=== PATIENT | female | born 1945 | race Caucasian/White ===

== ENCOUNTER 2019-05-26 20:18 | Emergency (ER) | payer MEDICARE, OTHER ==
[~2019-05-26] VITALS: Ht 154.9 cm; Wt 113.6 kg
[~2019-05-26 20:18] MED LIST: ALPR0.25 PO; BUPR300T3 PO; DULO30CA2 PO; EXEN10PE3 SQ; FLUT16SP2 NS; HYDR-2680 PO; LEVO88TA4 PO; LISI10TA2 PO; METF10007 PO; OMEP20CA16 PO; PRAV20TA2 PO; PREG100C PO; SUCR1TAB35 PO; SUMA25TA3 PO; TRAM50TA PO; ZOLP10TA PO
[2019-05-26] MEDS ORDERED: OXYMETAZOLINE 0.05% NASAL SPRAY 15ML BOTTLE. NS ONE ×2 (20:30→20:45)
[2019-05-26] MEDS ORDERED: SILVER NITRATE STICK TP ONE ×2 (20:32→20:45)
[2019-05-26 21:01] LABS: BASO # 0.1 x10^3/uL (0.0-0.2); BASO % 1 % (0-3); EOS # 0.3 x10^3/uL (0.0-0.7); EOS % 3 % (0-3); HEMATOCRIT 42.2 % (36.0-47.0); HEMOGLOBIN 13.8 g/dL (12.0-15.5); LYMPH # 2.4 x10^3/uL (1.0-4.8); LYMPH % 24 % (24-48); MEAN CORPUSCULAR HEMOGLOBIN 31 pg (25-35); MEAN CORPUSCULAR HGB CONC 33 g/dL (31-37); MEAN CORPUSCULAR VOLUME 96 fL (79-100); MONO # 0.7 x10^3/uL (0.0-1.1); MONO % 7 % (0-9); NEUT # 6.7 x10^3uL (1.8-7.7); NEUT % 66 % (31-73); PLATELET COUNT 158 x10^3/uL (140-400); RED BLOOD COUNT 4.41 x10^6/uL (3.50-5.40); RED CELL DISTRIBUTION WIDTH 13.3 % (11.5-14.5); WHITE BLOOD COUNT 10.1 x10^3/uL (4.0-11.0)
--- NOTE | 2019-05-26 21:43 | PHYS DOC ---
Past History Past Medical History: Asthma, COPD, Depression, Diabetes, GERD, High Cholesterol, Hypertension, Hypotension, Migraines Past Surgical History: Cholecystectomy Smoking: Non-smoker Alcohol Use: None Drug Use: None Adult General Chief Complaint Chief Complaint: NOSEBLEED HPI HPI 73-year-old female presents via EMS with report of nosebleed from left nostril which is been intermittent over the last 2 days. Denies dizziness or l ightheadedness. Reports was sent to ER for evaluation due to continued bleeding. Denies use of blood thinners. Denies trauma. Denies fever or chills. Review of Systems Review of Systems Constitutional: Denies fever or chills Eyes: Denies redness or eye pain HENT: Denies nasal congestion or sore throat; reports left naris epistaxis Respiratory: Denies cough or shortness of breath Cardiovascular: Denies chest pain or palpitations GI: Denies abdominal pain, nausea, or vomiting : Denies dysuria or hematuria Musculoskeletal: Denies back pain or joint pain Integument: Denies rash or skin lesions Neurologic: Denies headache, focal weakness, dizziness or sensory changes Complete systems were reviewed and found to be within normal limits, except as documented in this note.. Current Medications Current Medications Current Medications Medications (Trade) Dose Ordered Sig/Priya Start Time Stop Time Status Last Admin Dose Admin Oxymetazoline HCl (Afrin) 2 spray 1X ONCE 05/26/19 20:45 05/26/19 21:07 DC Silver Nitrate/ Potassium Nitrate 1 each 1X ONCE 05/26/19 20:45 05/26/19 21:06 DC 05/26/19 20:48 1 EACH Allergies Allergies Allergies Coded Allergies Type Severity Reaction Last Updated Verified codeine Allergy Mild 11/16/13 Yes Physical Exam Physical Exam Constitutional: Well developed, well nourished, no acute distress, non-toxic appearance HENT: Normocephalic, atraumatic, oropharynx moist, mild active bleeding anteriorly from nasal septum on left Eyes: Conjunctiva normal, no discharge Neck: Normal range of motion, no tenderness, supple Cardiovascular: Heart rate normal, regular rhythm Lungs & Thorax: Bilateral breath sounds clear to auscultation, no wheezing Skin: Warm, dry, no erythema, no rash Extremities: No tenderness, ROM intact, no edema Neurologic: Alert and oriented X 3, no focal deficits noted Psychologic: Affect normal, judgment normal Current Patient Data Vital Signs Vital Signs Date Time Temp Pulse Resp B/P (MAP) Pulse Ox O2 Delivery O2 Flow Rate FiO2 05/26/19 20:18 97.6 96 20 157/61 (93) 93 Room Air Lab Results Laboratory Tests Test 05/26/19 20:50 05/26/19 20:55 White Blood Count 10.1 x10^3/uL (4.0-11.0) Red Blood Count 4.41 x10^6/uL (3.50-5.40) Hemoglobin 13.8 g/dL (12.0-15.5) Hematocrit 42.2 % (36.0-47.0) Mean Corpuscular Volume 96 fL (79-100) Mean Corpuscular Hemoglobin 31 pg (25-35) Mean Corpuscular Hemoglobin Concent 33 g/dL (31-37) Red Cell Distribution Width 13.3 % (11.5-14.5) Platelet Count 158 x10^3/uL (140-400) Neutrophils (%) (Auto) 66 % (31-73) Lymphocytes (%) (Auto) 24 % (24-48) Monocytes (%) (Auto) 7 % (0-9) Eosinophils (%) (Auto) 3 % (0-3) Basophils (%) (Auto) 1 % (0-3) Neutrophils # (Auto) 6.7 x10^3uL (1.8-7.7) Lymphocytes # (Auto) 2.4 x10^3/uL (1.0-4.8) Monocytes # (Auto) 0.7 x10^3/uL (0.0-1.1) Eosinophils # (Auto) 0.3 x10^3/uL (0.0-0.7) Basophils # (Auto) 0.1 x10^3/uL (0.0-0.2) Prothrombin Time 11.0 SEC (9.4-11.4) Prothrombin Time INR 1.1 (0.9-1.1) Activated Partial Thromboplast Time 27 SEC (23-33) EKG EKG [] Radiology/Procedures Radiology/Procedures [] Course & Med Decision Making Course & Med Decision Making Pertinent Lab studies reviewed. (See chart for details) Patient presents with epistaxis from left [place] which is been intermittent over last 2 days. Bleeding currently controlled upon arrival. Elected to have patient blow out blood clots with Afrin administration thereafter. Patient still with some active bleeding. Silver nitrate stick utilized with improvement of bleeding. Patient did receive additional spray of Afrin with nasal clamp with interval resolution. CBC and coags obtained without acute process. Patient stable [facility] back [facility] with outpatient follow-up with PCP. Discussed findings and plan with patient, who acknowledges understanding and agreement. Dragon Disclaimer Dragon Disclaimer This electronic medical record was generated, in whole or in part, using a voice recognition dictation system. Additional Procedures Progress Epistaxis treatment: Verbal consent obtained. Time out performed. Hand hygiene utilized. Chemical cautery with silver nitrate stick utilized to left anterior septum with interval improvement of active bleeding. Patient tolerated procedure well and without difficulty. Departure Departure: Impression: Primary Impression: Epistaxis Disposition: 01 HOME, SELF-CARE Condition: STABLE Referrals: MIGUEL SCHMITZ MD (PCP) Patient Instructions: Noseamara, [id number] KATIE BRASWELL DO May 26, 2019 21:43
[2019-05-26 22:07] VITALS: BP 155/72
== END 2019-05-26 22:57 | disposition home or self-care (01) ==
LOC: ER 20:18
DX: R04.0 Epistaxis (principal); J44.9 Chronic obstructive pulmonary disease, unspecified; E11.9 Type 2 diabetes mellitus without complications; K21.9 Gastro-esophageal reflux disease without esophagitis; E78.5 Hyperlipidemia, unspecified; I10 Essential (primary) hypertension; Z90.49 Acquired absence of other specified parts of digestive tract; Z88.5 Allergy status to narcotic agent
CPT/HCPCS: 30901; 36415; 85025; 85610; 85730; 99284